=== PATIENT | male | born 2000 | race Caucasian/White ===

== ENCOUNTER 2020-07-15 09:41 | Emergency (ER) | payer OTHER, BC, SELFPAY ==
[2020-07-15 09:49] VITALS: BP 154/76; PULSE 96; RESP 16; TEMP 38.1; O2SAT 100
--- NOTE | 2020-07-15 10:26 | ED.URI ---
HPI - URI/Sore Throat General Chief Complaint: Upper Respiratory Infection Stated Complaint: back ache cold chills cough Time Seen by Provider: 07/15/20 10:27 Source: patient Mode of arrival: ambulatory Limitations: no limitations History of Present Illness HPI Narrative: Rosas Crowley is a 19 yo male with a fever, dry cough, backaches and general body aches x2 days. Fever was as high as 101.6 this morning at triage today was 100.6. Has not been taking Tylenol or ibuprofen Related Data Home Medications Medication Instructions Recorded Confirmed No Home Medications 07/15/20 07/15/20 Allergies Allergy/AdvReac Type Severity Reaction Status Date / Time No Known Allergies Allergy Verified 07/15/20 10:03 Review of Systems Review of Systems: Narrative: CONSTITUTIONAL: Has fever, chills, sweats. EYES: Denies visual changes, redness, discharge. ENT: Denies rhinorrhea, congestion, sore throat, otalgia. CARDIOVASCULAR: Denies chest pain, palpitations, edema. RESPIRATORY: Denies dyspnea, wheezing, has cough GASTROINTESTINAL: Denies abdominal pain, nausea, vomiting, diarrhea. GENITOURINARY: Denies dysuria, hematuria, abnormal discharge SKIN: Denies rash or itching. NEUROLOGIC: Denies numbness, or focal weakness. PSYCHIATRIC: Denies anxiety or depression. Has lower back pain and myalgia PMFSH Past Medical History Medical History ADHD Bronchitis Family History Family History Other No active medical problems Social History Social History (Updated 07/15/20 @ 10:38 by Diana Graff CNP) Smokeless tobacco user: chewing tobacco Smoking end date: 11/25/16 Comments At time of signature, I agree with nursing past medical, surgical, social and family history. There is no relevant family history pertinent to the presenting complaint. Patient is ill today and blood pressure is elevated. Should follow-up with a primary care physician when feeling better Exam Narrative: Exam Narrative: GENERAL: This is a well-nourished, well-developed patient, in moderate distress. HEAD: normocephalic, atraumatic. EYES: Sclera clear/white. Vision is grossly intact. EARS: External ears normal, auditory canals clear and without drainage, TMs normal without perforation. Hearing grossly intact. NOSE: External nose normal without nasal discharge, nares without redness, no rhinorrhea. THROAT: Mucous membranes moist, posterior pharynx erythema with no exudate NECK: Neck supple, mild tender CARDIOVASCULAR: Mild tachycardia rate and rhythm without murmurs, gallops, or rubs. RESPIRATORY: Diminished to auscultation. Dry cough. breath sounds equal bilaterally. No wheezes, rales, or rhonchi. GASTROINTESTINAL: Abdomen soft, non-tender, SKIN: warm, intact with no suspicious lesions or rash, good texture and turgor. NEURO: awake, alert, and oriented to person, place and time. There were no obvious focal neurologic abnormalities. Steady gait EXTREMITIES: Normal range of motion. BACK: Nontender without deformity Course Course Emergency Course: Given directions to rotate Tylenol and ibuprofen every 4 hours and hydrate well; monitor fever Testing prescription sent-and work excuse for today and given directions to quarantine until cover test results are obtained Vital Signs Vital signs: Vital Signs Temperature 100.6 F H 07/15/20 09:49 Pulse Rate 96 07/15/20 09:49 Respiratory Rate 16 07/15/20 09:49 Blood Pressure 154/76 H 07/15/20 09:49 Pulse Oximetry 100 07/15/20 09:49 Temperature 100.6 F H 07/15/20 09:49 Pulse Rate 96 07/15/20 09:49 Respiratory Rate 16 07/15/20 09:49 Blood Pressure 154/76 H 07/15/20 09:49 Pulse Oximetry 100 07/15/20 09:49 MDM - URI/Sore Throat Differential Diagnosis Differential diagnosis: Likely upper respiratory infection, viral infection, influenza, pharyngitis and other D
== END 2020-07-15 10:45 | disposition home or self-care (01) ==
PROVIDERS: Emergency Provider Nurse Practitioner
DX: J06.9 Acute upper respiratory infection, unspecified (principal); F17.290 Nicotine dependence, other tobacco product, uncomplicated
CPT/HCPCS: 99211; G0463

== ENCOUNTER 2023-05-14 14:24 | Emergency (ER) | payer BC, SELFPAY ==
[2023-05-14 14:33] VITALS: BP 143/85; PULSE 94; RESP 16; TEMP 36.7; O2SAT 100
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
== END 2023-05-14 14:42 | disposition home or self-care (01) ==
PROVIDERS: Emergency Provider Nurse Practitioner Family
DX: L25.9 Unspecified contact dermatitis, unspecified cause (principal); F17.220 Nicotine dependence, chewing tobacco, uncomplicated
CPT/HCPCS: 99213; G0463

== ENCOUNTER 2023-10-25 15:25 | Emergency (ER) | payer BC, SELFPAY ==
[2023-10-25 15:37] VITALS: BP 150/84; PULSE 122; RESP 16; TEMP 36.6; O2SAT 100
[2023-10-25 15:49] VITALS: BP 150/84; PULSE 122; RESP 16; TEMP 36.6; O2SAT 100
--- NOTE | 2023-10-25 16:05 | ED.URI ---
HPI - URI/Sore Throat General Chief Complaint: Upper Respiratory Infection Stated Complaint: Sore Throat/Rash Time Seen by Provider: 10/25/23 15:50 Source: patient Mode of arrival: ambulatory Limitations: no limitations History of Present Illness HPI Narrative: Rosas is a 23-year-old male patient presenting to the clinic today with complaints of a sore throat a rash x3 days. He reports he went all [facility] and they tested him for strep and told him it was negative at that time. States that the sore throat is getting worse. He denies any known fever but does have a strep like rash. MD elicited complaint: sore throat and other (Rash) Related Data Allergies Allergy/AdvReac Type Severity Reaction Status Date / Time No Known Allergies Allergy Verified 10/25/23 15:49 Review of Systems Review of Systems: Pertinent positives per HPI. Patient denies any fever, chills, headache, visual changes, dizziness, cough, shortness of breath, chest pain, palpitations, nausea, vomiting, diarrhea, constipation, abdominal pain, or any urinary issues. PMFSH Past Medical History Medical History ADHD Bronchitis Family History Family History Other No active medical problems Social History Social History Smokeless tobacco user: chewing tobacco Smoking end date: 11/25/16 Comments At the time of my signature, I reviewed and agree with the nursing past medical, surgical, social, and family history. There is no relevant family history pertinent to the patient complaint. Exam Narrative: General: Well-developed, well nourished, in no apparent distress Head: Normocephalic, atraumatic Eyes: Pupils equally round and reactive to light bilaterally, EOM intact, sclera and conjunctive clear, no discharge, lids normal Ears: TMs intact and clear, ear canals clear, no drainage, grossly hearing normal. Nose: Nares patent, no discharge, no inflammation, no sinus tenderness. Mouth: Oral pharynx red with bilateral tonsillar enlargement with exudate, without lesions or masses, good dentition, MMM. Neck: Supple, trachea midline, enlargement of anterior cervical nodes, no thyroid masses or goiter palpable. Cardio: Regular rate and rhythm, s1 and s2 normal, no murmur appreciated. Resp: Clear to auscultation bilaterally, no rhonchi, rales, wheezing or rubs Course Course Emergency Course: Portions of this record may have been created with voice recognition software. Level of Care: Express Care Visit Vital Signs Vital signs: Vital Signs Temperature 36.6 C 10/25/23 15:37 Pulse Rate 122 H 10/25/23 15:37 Respiratory Rate 16 10/25/23 15:37 Blood Pressure 150/84 H 10/25/23 15:37 Pulse Oximetry 100 10/25/23 15:37 Oxygen Delivery Room Air 10/25/23 15:37 Temperature 36.6 C 10/25/23 15:49 Pulse Rate 122 H 10/25/23 15:49 Respiratory Rate 16 10/25/23 15:49 Blood Pressure 150/84 H 10/25/23 15:49 Pulse Oximetry 100 10/25/23 15:49 Oxygen Delivery Room Air 10/25/23 15:49 Vital signs reviewed MDM - URI/Sore Throat MDM Narrative Medical decision making narrative: At the time of visit patient is resting comfortably on exam table. I suspect patient has exudative pharyngitis. Strep test and mono test were both negative in the clinic today due to his symptoms I will go and empirically treat him with amoxicillin. Supportive measures were discussed with the patient he voiced understanding discharge instructions and agrees to treatment plan. Differential Diagnosis Differential diagnosis: Likely upper respiratory infection, otitis media, sinusitis, viral infection, bronchitis, influenza, pharyngitis and other (COVID) Lab Data Labs: Strep Screen Presumptive Negative *(Refere
== END 2023-10-25 16:14 | disposition home or self-care (01) ==
PROVIDERS: Emergency Provider Nurse Practitioner Family
DX: J02.9 Acute pharyngitis, unspecified (principal); Z87.891 Personal history of nicotine dependence
CPT/HCPCS: 36416; 86308; 87081; 87880; 99213; G0463

== ENCOUNTER 2025-02-11 08:08 | Emergency (ER) | payer BC, SELFPAY ==
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
--- OUTSIDE RECORDS SUMMARY | 2025-02-11 08:11 | XMS_ITS | Referral Summary ---
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 Gender Identity Not on file Sexual Orientation Not on file Last Filed Vital Signs Vital Sign Reading Time Taken Comments Blood Pressure 148/86 10/23/2023 2:40 AM HEAD WRESTLING COACH Pulse 85 10/23/2023 2:40 AM HEAD WRESTLING COACH Temperature 36.6 C (97.8 F) 10/22/2023 9:51 PM HEAD WRESTLING COACH Respiratory Rate 18 10/23/2023 2:40 AM HEAD WRESTLING COACH Oxygen Saturation 100% 10/23/2023 2:40 AM HEAD WRESTLING COACH Inhaled Oxygen Concentration - - Weight 93 kg (205 lb) 10/22/2023 9:51 PM HEAD WRESTLING COACH Height 185.4 cm (6' 1 ) 06/12/2022 5:32 PM CDT Body Mass Index 27.05 06/12/2022 5:32 PM CDT Plan of Treatment Not on file Procedures Procedure Name Priority Date/Time Associated Diagnosis [...] last revised on 2020. Testing performed by: [facility], [address] [place] [address]., [id number] Blood 06/12/2022 8:11 PM CDT 06/13/2022 9:17 AM CDT [facility] - GENERAL O RDERABLES Edited Result - Final NADYA LOPEZ ([place]) 1 [facility] Department [place] [address] from Last 3 Months or Most Recently Relevant to Health [place] [address] [facility] Care Teams Fac Engineer Relationship Specialty Start Date End Date No, Physician PCP - General 02/16/21
--- OUTSIDE RECORDS SUMMARY | 2025-02-11 08:11 | XMS_ITS | Clinical Summary ---
Author Organization [facility] Address [address] [place] [address] Care Team Providers Care Trade Clerk Name Role Phone Tripp Abraham MD Primary Care Provider [phone] Source Comments [facility],non-owned Affiliates and Associated Physician Practices is amultiple site organization consisting of ambulatory clinics and hospital sitesin [place], [place], [place] and [place]. This disclosure is being madepursuant to the Care Everywhere program and may not contain all information available regarding this patient. Last updated 18.[facility] Allergies No known active allergies Medications * Be aware that medications may not be up to date on this document. Alwaysverify current medications with the patient. Medication Sig Dispensed Refills Start Date End Date Status omeprazole EC (PRILOSEC OTC) 20 MG tabletIndications:Gen eralized abdominal pain Take 1 Tab by mouth daily before breakfast 42 Tab 1 03/08/2017 Active Active Problems Problem Noted Date Diagnosed Date Abdominal pain 03/01/2017 Social History Tobacco Use Types Packs/Day Years Used Date Smoking Tobacco: Never Assessed Sex and Gender Information Value Date Recorded Sex Assigned at Not on file Gender Identity Not on file Sexual Orientation Not on file Last Filed Vital Signs Vital Sign Reading Time Taken Comments Blood Pressure 118/64 03/08/2017 1:25 PM CDT Pulse - - Temperature - - Respiratory Rate - - Oxygen Saturation - - Inhaled Oxygen Concentration - - Weight 68.4 kg (150 lb 12.7 oz) 03/08/2017 1:25 PM CDT Height 179.4 cm (5' 10.63 ) 03/08/2017 1:25 PM C DT Body Mass Index 21.25 03/08/2017 1:25 PM CDT Plan of Treatment Health Maintenance Due Date Last Done Comments HIV SCREENING 2014 HPV VACCINE (1 - Male 3-dose series) 2014 HEPATITIS C SCREENING 09/06/2017 DTAP/TDAP/TD VACCINES (1 - Tdap) 2018 HEPATITIS B VACCINE (1 of 3 - 19+ 3-dose series) 2018 COVID-19 VACCINE (1 - 2023-2 5 season) 2024 INFLUENZA VACCINE (#1) 2024 DEPRESSION SCREENING 11/25/2024 ZOSTER VACCINE (1 of 2) 2049 HIB VACCINE Aged Out No longer eligi ble based on patient's age to complete this topic MENINGOCOCCAL (Group B) VACC INE SHARED DECISION-MAKING Aged Out No longer eligibl e based on patient's age to complete this topic MENINGOCOCCAL GROUPS A/C/Y/W VACCINE Aged Out No longer eligible b ased on patient's age to complete this topic PNEUMOCOCCAL VACCINE Aged Out No long er eligible based on patient's age to complete this topic Care Teams Trade Clerk Relationship Specialty Start Date End Date Tripp Abraham MD [address] [place], [place] [id number] PCP - General Pediatrics 02/11/17
--- OUTSIDE RECORDS SUMMARY | 2025-02-11 08:11 | XMS_ITS | Clinical Summary ---
Author Organization [facility] Address [address] [place] [address] Phone Care Team Providers Care Flavorings Compounder Name Role Phone Tripp Abraham MD Primary Care Provider Social History Tobacco Use Types Packs/Day Years Used Date Smoking Tobacco: Never Assessed Sex and Gender Information Value Date Recorded Sex Assigned at Not on file Legal Sex Male 9:47 AM CDT Gender Identity Not on file Sexual Orientation Not on file Plan of Treatment Health Maintenance Due Date Last Done Comments Hepatitis C Virus (HCV) Screening 1999 TdaP Immunization 1999 Human Papillomavirus (HPV) Immunization (1 - Male 3-dose series) 2014 Hepatitis B Immunization (1 of 3 - 19+ 3-dose series) 2018 Influenza Immunization (#1) 2024 SARS-COV-2 Immunization ( - 2023- season) 2024 Respiratory Syncytial Virus (RSV) Immunization (Adult) (1 - 1-dose 75+ series) 2074 Meningococcal Immunization (ACWY) Aged Out No longer eligible based on patient's age to complete this topic Pneumococcal Immunization Combined Aged Out No longer eligible based on patient's age to complete this topic Rotavirus Immunization Aged Out No lo nger eligible based on patient's age to complete this topic Insurance MEDICAID [employer] Care Teams Flavorings Compounder Relationship Specialty Start Date End Date Tripp Abraham MD [address] [place] [address] [place] [id number] PCP - General Pediatrics 02/05/17
--- NOTE | 2025-02-11 08:13 | ED.GENADULT ---
HPI - General Adult General Chief complaint: Upper Respiratory Infection Stated complaint: sore throat/ lower back pain Time Seen by Provider: 02/11/25 08:22 Source: patient, RN notes reviewed and old records reviewed Mode of arrival: ambulatory Limitations: no limitations History of Present Illness HPI narrative: 24-year-old male to the [facility] with complaints of a sore throat, low back pain, body aches that started yesterday. Patient has not taking anything his symptoms. Denies fevers. Denies any other symptoms Onset (ago): day(s) (1) Treatments prior to arrival: none Related Data Allergies Allergy/AdvReac Type Severity Reaction Status Date / Time No Known Allergies Allergy Verified 02/11/25 08:22 Review of Systems Review of Systems: All systems reviewed & are unremarkable except as noted in HPI and below Constitutional: Constitutional: Reports as per HPI, Reports body ache(s) and Reports fatigue ENT: Reports as per HPI and Reports sore throat Cardiovascular: Cardiovascular: Reports no additional cardiovascular complaints, Denies chest pain and Denies dyspnea Respiratory: Respiratory: Reports no additional respiratory complaints, Denies chest congestion, Denies cough and Denies dyspnea Musculoskeletal: Musculoskeletal: Reports no additional musculoskeletal complaints Integumentary/Breasts: Skin/Breast: Reports system reviewed and no additional complaints, except as docu PMFSH Past Medical History Medical History (Updated 02/11/25 @ 08:38 by Suki Zuniga APRN) Bronchitis ADHD Family History Family History Other No active medical problems Social History Social History Smokeless tobacco user: chewing tobacco Smoking end date: 11/25/16 Comments At the time of my signature, I reviewed and agree with the nursing past medical, surgical, social, and family history. There is no relevant family history pertinent to the patient complaint. Exam Const: General: cooperative, no acute distress, well developed, alert, tired appearing, uncomfortable and well nourished Nutritional Appearance: well nourished Orientation/consciousness: patient oriented x3 Limitations: no limitations HENMT: Head: normal to inspection Ears: hearing grossly normal bilaterally, external ears normal, TM's normal bilaterally, EAC's normal, mastoids normal and no periauricular adenopathy Face/Nose/Sinus: Normal external nose present, Normal nasal mucous membranes and turbinates present and No nasal discharge present Face and sinus: normal facial exam and face symmetric Mouth: Yes Normal oral and palatal mucosa present, Yes lip normal, Yes tongue normal and Yes moist mucous membranes Throat: uvula midline, abnormal tonsil bilateral erythema, exudates and hypertrophy 2+ and no uvular edema Eyes: General: appearance normal, both eyes and all related structures Alignment and Position: alignment normal Neck: Neck: normal visual inspection, full ROM, no lymphadenopathy and no meningeal signs Chest: Chest palpation & inspection: normal inspection of the chest Resp: Effort & Inspection: normal respiratory effort and able to speak in complete sentences Auscultation: clear to auscultation bilaterally, no crackles, no rales, no rhonchi and no wheezes Cardio: Rate: regular rate Skin: General skin exam: normal color and no rashes or lesions noted Neuro: General: patient oriented x3, gait normal, moves all extremities and no meningeal signs Cognition (Neuro): normal cognition Speech: normal speech Gait exam (Neuro): Normal gait present Extrem: General: normal to inspection, full ROM, capillary refill normal and normal gait Psych: Appearance: grossly normal and well kempt Mental Status: mental status grossly normal Speech and movement: Normal speech and movement present and Clear speech present Affect: normal affect Attitude: cooperative Course Course Level of Care: Express Care Visit Vital Signs Vital signs: Vital Signs Temperature 98.3 F 02/11/25 08:15 Pulse Rate 90 02/11/25 08:15 Respiratory Rate 16 02/11/25 08:15 Blood Pressure 126/69 02/11/25 08:15 Pulse Oximetry 100 02/11/25 08:15 Oxygen Delivery Room Air 02/11/25 08:15 Temperature 98.3 F 02/11/25 08:15 Pulse Rate 90 02/11/25 08:15 Respiratory Rate 16 02/11/25 08:15 Blood Pressure 126/69 02/11/25 08:15 Pulse Oximetry 100 02/11/25 08:15 Oxygen Delivery Room Air 02/11/25 08:15 Reviewed Medical Decision Making MDM Narrative Medical decision making narrative: Patient sitting comfortably in exam room. Nontoxic, vitals stable. Patient in no acute distress Patient presents for 1 day history of body aches, sore throat Significant erythema, exudate and swelling noted to bilateral tonsils. Strep flu and COVID are negative. Will treat tonsillitis with exudate Patient appropriate for outpatient treatment and follow-up Discharge instructions reviewed with patient, as well as provided in writing per nursing staff. The instructions also include specific and strict return/GO TO THE ER as well as f/u information. All questions have been answered, and the patient deny any further questions with discharge and discharge plan. Some parts of this dictation were generated by voice recognition software and may contain typographical and/or grammatical inaccuracies. Differential Diagnosis Differential Diagnosis: Flu, COVID, strep, URI postnasal drainage Medical Records Medical records reviewed: Yes I reviewed the external patient's medical records. Vital Signs Vital Signs: Vital Signs Temperature 98.3 F 02/11/25 08:15 Pulse Rate 90 02/11/25 08:15 Respiratory Rate 16 02/11/25 08:15 Blood Pressure 126/69 02/11/25 08:15 Pulse Oximetry 100 02/11/25 08:15 Oxygen Delivery Room Air 02/11/25 08:15 Temperature 98.3 F 02/11/25 08:15 Pulse Rate 90 02/11/25 08:15 Respiratory Rate 16 02/11/25 08:15 Blood Pressure 126/69 02/11/25 08:15 Pulse Oximetry 100 02/11/25 08:15 Oxygen Delivery Room Air 02/11/25 08:15 Reviewed Lab Data Lab results reviewed: Yes I reviewed the patient's lab results. Labs: Lab Results 02/11/25 Range/Units 08:18 POC Influenza A Ag Negative (Negative) POC Influenza B Ag Negative (Negative) POC SARS CoV-2 Ag Negative (Negative) Reviewed Critical Care Time Critical Care Time Critical Care Time: No Discharge Plan Discharge Clinical Impression: Tonsillitis with exudate Patient Disposition: Home, Self-Care Condition: Stable Instructions: Antibiotic Form, Tonsillitis (ED) Additional Instructions: Your rapid strep swab was negative today at [facility]. A throat culture will be sent to the laboratory for further testing. If the test is positive, you will receive a phone call within 48 hours and an appropriate antibiotic will be initiated at that time. Your rapid COVID test were negative Your rapid flu test was negative It is very important to treat your symptoms. Drink plenty of water, Gatorade, Pedialyte, ice pops or Jell-O. -Alternate Tylenol and Motrin per package directions for fever or pain. You can alternate every 4 hours -Antihistamine medication such as Zyrtec/Claritin/Jessica during the day can help improve symptoms. -You can also use Mucinex. Be sure to drink plenty of water with this medication at least 8 ounces with every dose and it is important to drink 8 to 10 glasses of water per day. Water is a natural decongestant -Eat and drink things that are easy to swallow, like tea or soup, or popsicles. -Oral rinses such as: Salt water gargles and/or may use topical anesthetic (eg. Chloraseptic spray) or lozenges to relieve dryness or throat pain). -Frequent hand washing or hand national sales director is one of the best ways to prevent spread of infection. -Using a vaporizer or humidifier at night will also help thin secretions and help with coughing up phlegm. -Follow up with primary care provider in 7-10 days if condition is not improving - For new or worsening symptoms go directly to the nearest ER Patient Language: Czech Prescriptions: New amoxicillin 875 mg tablet 875 mg PO Q12H Qty: 20 0RF No Action amoxicillin 875 mg tablet 875 mg PO Q12H 10 Days Qty: 20 0RF Follow-up/Referrals: UNKNOWN,DOCTOR [Primary Care Provider] - Stand Alone Forms: Work/School Release IP Time of Disposition: 08:39
[2025-02-11 08:15] VITALS: BP 126/69; PULSE 90; RESP 16; TEMP 36.8; O2SAT 100
[2025-02-11 08:41] LABS: EDCOVIDSCREEN Negative (Negative); EDINFLUASCREEN Negative (Negative); EDINFLUBSCREEN Negative (Negative)
[2025-02-11 09:34] LABS: EDSTREPNEGPOS1 Negative (Negative)
== END 2025-02-11 08:44 | disposition home or self-care (01) ==
PROVIDERS: Emergency Provider Nurse Practitioner
DX: J03.90 Acute tonsillitis, unspecified (principal); Z20.822 Contact with and (suspected) exposure to COVID-19; Z87.891 Personal history of nicotine dependence
CPT/HCPCS: 87081; 87426; 87804; 87880; 99213; G0463

== ENCOUNTER 2025-03-18 11:44 | Emergency (ER) | payer OTHER, BC, SELFPAY ==
--- NOTE | ~2025-03-18 | XR_ITS ---
XR chest 2V Ordering provider: Etta Gao NP History: 24 years Male with . month of respiratory infection symptoms . Comparison: None. FINDINGS: MEDIASTINUM: The cardiac silhouette is not enlarged. LUNGS: No infiltrates, effusions or pneumothorax. OTHER: No free air under the diaphragm. IMPRESSION: No acute cardiopulmonary pathology. Reviewed, dictated and finalized at location A.
[2025-03-18 11:50] VITALS: BP 127/68; PULSE 92; RESP 28; TEMP 36.5; O2SAT 100
--- NOTE | 2025-03-18 12:08 | ECG_ITS ---
Test Date: 2025-03-18 12:01:15 Measurements Intervals [place] Rate: 63 P: 61 TX: 133 QRS: 73 QRSD: 103 T: 43 QT: 385 QTc: 396 Interpretive Statements SINUS RHYTHM WITH SINUS ARRHYTHMIA INCOMPLETE RIGHT BUNDLE BRANCH BLOCK PEAKED T WAVES- CONSIDER HYPERKALEMIA ABNORMAL ECG No previous ECG available for comparison Electronically Signed On 03-18-2025 13:02:46 CDT by Blane Vicente D.O.
--- NOTE | 2025-03-18 12:08 | ED.CHESTPAIN ---
HPI - Chest Pain General Chief Complaint: Chest Pain Stated Complaint: chest pain/numbness of left side/shortnessofbreath Time Seen by Provider: 03/18/25 12:00 Source: patient, RN notes reviewed and old records reviewed Mode of arrival: ambulatory Limitations: no limitations History of Present Illness HPI narrative: 24 year old male presents to [facility] care with complaints of having one month duration of URI with cough, nasal drainage and some sinus pressure with cough starting to resolve. Patient reports that last night around 10pm he had left sided chest pain but was then able to go to sleep and slept all night with no pain when he awoke this morning. Patient reports that around 0900 this morning while at work he started having similar pain to his left chest and felt short of breath. Patient noted in triage to be sweaty and hyperventilating states some numbness to his hands and left chest. Patient reports that he took aspirin before he came to clinic. Patient reports no feelings of nausea or any pain to back arms or jaw.Patient reports that he has a lot of stress in his life states 2 baby mommas and 4 kids. MD complaint: chest pain Pertinent past history: other (vaping) Onset (ago): day(s) Timing of current episode: other (this morning at 0900) Prior episodes: Yes Onset: during exertion Pain location: left chest Pain scale (0-10): 7 Treatment prior to arrival: aspirin Risk Factors Coronary artery disease risk factors: smoking history Related Data Allergies Allergy/AdvReac Type Severity Reaction Status Date / Time bee venom protein (honey Allergy SOB Verified 03/18/25 12:50 bee) (bees) Review of Systems Review of Systems: CONSTITUTIONAL: Denies fever, chills, or sweats. EYES: Denies visual changes, redness, or discharge. ENT: Reports some rhinorrhea, congestion,no sore throat, or otalgia. CARDIOVASCULAR: Reports left sided chest pain,no palpitations, or edema. RESPIRATORY: Reports cough or dyspnea. GASTROINTESTINAL: Denies abdominal pain, nausea, vomiting, or diarrhea. GENITOURINARY: Denies dysuria or hematuria. SKIN: Denies rash or itching. MUSCULOSKELETAL: Denies back pain, joint pain, or myalgia. NEUROLOGIC: Denies headache, numbness to hands and left chest on arrival, no weakness. PSYCHIATRIC: Reports anxiety or depression. All systems reviewed & are unremarkable except as noted in HPI and below PMFSH Past Medical History Medical History (Updated 03/19/25 @ 17:34 by Etta Gao NP) Ulcer Fracture, ankle Bronchitis ADHD Family History Family History Other No active medical problems Social History Social History (Updated 03/19/25 @ 17:32 by Etta Gao NP) Smoking status: Current every day smoker Tobacco type: e-cigarettes/vaping Smokeless tobacco user: chewing tobacco Smoking end date: 11/25/16 Additional smoking assessment comments: currently vapes former chewing tobacco Alcohol intake: unknown Substance use: current Substance use type: marijuana Additional living arrangements comments: with Gender identity (if verbalized by the patient): Male Comments At time of signature, agree with nursing past medical, surgical, social and family history. There is no relevant family history pertinent to the presenting complaint Exam Narrative: GENERAL: Well-appearing, well-nourished, and in some acute distress on arrival anxious HEAD: Normocephalic, atraumatic. EYES: PERRLA and EOMI. ENT: Nares clear,clear rhinorrhea no epistaxis. Mucous membranes moist.TM's normal throat pink with no swelling NECK: Supple. no lymphadenopathy CHEST: Clear to auscultation. No respiratory distress.initially hyperventilating on arrival with respirations decreased in rate to 20 with no dyspnea voiced. occasional dry cough noted SAO2 100% HEART: Regular rate and rhythm. No murmur heard. Normal peripheral pulses. echo technologist showing sinus arrhythmia rate 60-90's no ectopy noted ABDOMEN: Soft, nontender, nondistended, normal active bowel sounds. EXTREMITIES: Normal range of motion. No edema. SKIN: Warm, dry, no rash. NEURO: No focal deficits. Alert and oriented x3. anxious initially but calmed prior to discharge Course Course Emergency Course: Patient is aware of diagnosis, understands and agrees to treatment plan.? Anticipatory guidance given.? Patient agrees to follow-up as directed and is aware of reasons to seek care at the emergency department. Patient instructed if any return of acute chest pain to go directly to the emergency room with understanding voiced. Portions of this record may have been created with voice recognition software Level of Care: Express Care Visit Vital Signs Vital signs: Vital Signs Temperature 36.5 C 03/18/25 11:50 Pulse Rate 92 03/18/25 11:50 Respiratory Rate 28 H 03/18/25 11:50 Blood Pressure 127/68 03/18/25 11:50 Pulse Oximetry 100 03/18/25 11:50 Oxygen Delivery Room Air 03/18/25 11:50 Temperature 36.5 C 03/18/25 11:50 Pulse Rate 64 03/18/25 13:08 Respiratory Rate 20 03/18/25 13:08 Blood Pressure 111/58 L 03/18/25 13:08 Pulse Oximetry 98 03/18/25 13:08 Oxygen Delivery Room Air 03/18/25 13:08 Reviewed MDM - Chest Pain Differential Diagnosis Differential diagnosis: Likely atypical chest pain, costochondritis, chest pain and other (uri, anxiety) Medical Records Data Attestation: I reviewed the patient's medical records. Imaging Data Attestation: I personally reviewed and interpreted this imaging study as follows: My impression: no acute cardiopulmonary pathology Radiologist's impression: [place] [id number] XRay Report Signed Patient: Rosas Crowley : 2000 MR#: [id number] Age: 24 Acct:[id number] Loc: [facility] ADM Date: 03/18/25Attending Dr: Ordering Physician: Etta Gao APRN Date of Service: 03/18/25 Procedure(s): XR chest 2V Accession Number(s): [id number] cc: GROUND DEFENCE OFFICER PHYSICIAN; Etta Gao APRN~ XR chest 2V Ordering provider: Etta Gao NP History: 24 years Male with . month of respiratory infection symptoms . Comparison: None. FINDINGS: MEDIASTINUM: The cardiac silhouette is not enlarged. LUNGS: No infiltrates, effusions or pneumothorax. OTHER: No free air under the diaphragm. IMPRESSION: No acute cardiopulmonary pathology. Reviewed, dictated and finalized at location A. Please be advised this is a medical document. It is intended for ract-uc-efnp communication. It is written in medical language and may contain unfamiliar abbreviations or verbiage. Medical documents are intended to carry relevant information, facts as evident, and the clinical opinion of the practitioner at the time of the encounter. This report may have been done utilizing a voice recognition system. Attempts have been made to correct errors. However, there may be uncorrected grammatical, spelling, and recognition errors present. The file time of this note does not necessarily represent the time of service. Dictated By: Alec Bhakta MD 03/18/25 1235 Signed By: <Electronically signed by Alec Bhakta MD in OV> ECG Data EKG #1: Attestation: I personally reviewed and interpreted this ECG as follows: ECG completion date: 03/18/25 ECG completion time: 12:01 Prior ECG tracings: not available for review Ischemic changes: other (V1 flipped T ) Interpretation: rate 63bpm, DC 133ms QRS 103ms QT 385ms sinus rhythm with sinus arrhythmia EKG Interpretation: normal rate, sinus rhythm (sinus arrhythma), RBBB (incomplete) and other (peaked t V4) Discharge Plan Discharge Clinical Impression: Atypical chest pain Patient Disposition: Home Condition: Stable Instructions: Antibiotic Form, Chest Wall Pain (ED) Additional Instructions: Increase fluids especially juices and water Zyrtec Claritin or Jessica daily heat to the face 20-30 minutes 4-6 times a day for pain Salt water gargles, throat lozenges or throat sprays as desired Prednisone 20 mg twice daily for 5 days If your symptoms persist, change or worsen significantly before you can contact your personal physician then please, without delay, go to the emergency department for further evaluation. Follow-up with PCP in 7-10 days or sooner if needed Follow up with PCP soon in regards to your blood pressure which is elevated above threshold for referral. Blood pressure above 120/80 may indicate pre-hypertension. Minimal systolic elevation 127/68 If any episodes of chest pain or any shortness of breath go directly to the emergency room Patient Language: Romanian Prescriptions: New prednisone 20 mg tablet 20 mg PO BID 5 Days Qty: 10 0RF Follow-up/Referrals: PHYSICIAN,GROUND DEFENCE OFFICER [Primary Care Provider] - Time of Disposition: 13:01 Quality [place] Coma Scale Eyes: Open Verbal: Oriented and Alert Motor: Follows Commands [place] Coma Total Score: 15
[2025-03-18 13:08] VITALS: BP 111/58; PULSE 64; RESP 20; O2SAT 98
--- OUTSIDE RECORDS SUMMARY | 2025-03-18 13:10 | XMS_ITS | Referral Summary ---
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 CLERK Gender Identity Not on file Sexual Orientation Not on file Last Filed Vital Signs Vital Sign Reading Time Taken Comments Blood Pressure 148/86 10/23/2023 2:40 AM BRAILLE AND TALKING BOOKS CLERK Pulse 85 10/23/2023 2:40 AM BRAILLE AND TALKING BOOKS CLERK Temperature 36.6 C (97.8 F) 10/22/2023 9:51 PM BRAILLE AND TALKING BOOKS CLERK Respiratory Rate 18 10/23/2023 2:40 AM BRAILLE AND TALKING BOOKS CLERK Oxygen Saturation 100% 10/23/2023 2:40 AM BRAILLE AND TALKING BOOKS CLERK Inhaled Oxygen Concentration - - Weight 93 kg (205 lb) 10/22/2023 9:51 PM BRAILLE AND TALKING BOOKS CLERK Height 185.4 cm (6' 1 ) 06/12/2022 [...] last revised on 2020. Testing performed by: [facility], [address] [place] [address]., [id number] Blood 06/12/2022 8:11 PM CDT 06/13/2022 9:17 AM CDT Ivan [facility] MICROBIOLOGY - GENERAL O RDERABLES Edited Result - Final NADYA LOPEZ ([place]) 1 [facility] Department [place] [address] from Last 3 Months or Most Recently Relevant to [place] [address] [facility] Care Teams Pediatric Psychiatrist Relationship Specialty Start Date End Date No, Physician PCP - General 02/16/21
--- OUTSIDE RECORDS SUMMARY | 2025-03-18 13:10 | XMS_ITS | Clinical Summary ---
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 Gender Identity Not on file Sexual Orientation Not on file Obstetrics History Last Filed Vital Signs Vital Sign Reading Time Taken Comments Blood Pressure 148/86 10/23/2023 2:40 AM CONSTRUCTION EQUIPMENT TECHNICIAN Pulse 85 10/23/2023 2:40 AM CONSTRUCTION EQUIPMENT TECHNICIAN Temperature 36.6 C (97.8 F) 10/22/2023 9:51 PM CONSTRUCTION EQUIPMENT TECHNICIAN Respiratory Rate 18 10/23/2023 2:40 AM CONSTRUCTION EQUIPMENT TECHNICIAN Oxygen Saturation 100% 10/23/2023 2:40 AM CONSTRUCTION EQUIPMENT TECHNICIAN Inhaled Oxygen Concentration - - Weight 93 kg (205 lb) 10/22/2023 9:51 PM CONSTRUCTION EQUIPMENT TECHNICIAN Height 185.4 cm (6' 1 ) 06/12/2022 [...] last revised on 2020. Testing performed by: [facility], [address] [place] [address]., [id number] Blood 06/12/2022 8:11 PM CDT 06/13/2022 9:17 AM CDT Ivan [facility] MICRO[facility] - GENERAL O RDERABLES Edited Result - Final NADYA LOPEZ ([place]) 1 [facility] Department [place] [address] from Last 3 Months or Most Recently Relevant to Health Maintenance Insurance [address] [facility] [place] [address] [facility] [address] Care Teams Cable Way Operator Relationship Specialty Start Date End Date No, Physician PCP - General 02/16/21
--- OUTSIDE RECORDS SUMMARY | 2025-03-18 13:10 | XMS_ITS | Clinical Summary ---
Author Organization [facility] Address [address] [place] [address] Care Team Providers Care Precinct Captain Name Role Phone Tripp Abraham MD Primary Care Provider [phone] Source Comments [facility],non-owned Affiliates and Associated Physician Practices is amultiple site organization consisting of ambulatory clinics and hospital sitesin [place], [place], [place] and [place]. This disclosure is being madepursuant to the Care Everywhere program and may not contain all information available regarding this patient. Last updated 18.[facility] Allergies No known active allergies Medications * Be aware that medications may not be up to date on this document. Alwaysverify current medications with the patient. omeprazole EC (PRILOSEC OTC) 20 MG tabletIndicatio ns:Generalized abdominal pain Take 1 Tab by mouth daily before breakfast 42 Tab 1 7 Active Active Problems Problem Noted Date Diagnosed Date Abdominal pain 03/01/2017 Social History Tobacco Use Types Packs/Day Years Used Date Smoking Tobacco: Never Assessed Sex and Gender Information Value Date Recorded Sex Assigned at Not on file Legal Sex Male 10:17 AM CDT Gender Identity Not on file [...] VACCINE (1 - 2023-2 5 season) 2024 DEPRESSION SCREENING 11/25/2024 INFLUENZA VACCINE (Season Ended) 2025 ZOSTER VACCINE (1 of 2) 2049 HIB [...] patient's age to complete this topic Insurance [facility] Care Teams Precinct Captain Relationship Specialty Start Date End Date Tripp Abraham MD [address] [place], [place] [id number] PCP - General Pediatrics 02/11/17
== END 2025-03-18 13:08 | disposition home or self-care (01) ==
PROVIDERS: Emergency Provider Registered Nurse
DX: R07.89 Other chest pain (principal); F17.290 Nicotine dependence, other tobacco product, uncomplicated
CPT/HCPCS: 71046; 93005; 99213; G0463

== ENCOUNTER 2025-08-12 10:03 | Emergency (ER) | payer BC, SELFPAY ==
[2025-08-12 10:13] VITALS: BP 137/76; PULSE 71; RESP 18; TEMP 36.8; O2SAT 100
--- NOTE | 2025-08-12 10:22 | ED.NAVMDI ---
HPI - Nausea/Vomiting/Diarrhea General Chief complaint: Nausea/Vomiting/Diarrhea Stated complaint: dehydration, puking, appetite loss, stomach pain Time Seen by Provider: 08/12/25 10:15 Source: patient Mode of arrival: ambulatory Limitations: no limitations History of Present Illness HPI Narrative: Rosas is a 24-year-old male patient presenting to the clinic today with complaints of possible dehydration, nausea, vomiting, decreased appetite, and abdominal cramping x1 week. Reports he is able to keep water and Gatorade down at this time. Did try did eat some potatoes and was able to keep that down as well. Feels as though he may be dehydrated. He does report some abdominal cramping that comes and goes. No diarrhea. No blood in his stool. Last bowel movement was this morning and soft. He has been passing gas. Related Data Allergies Allergy/AdvReac Type Severity Reaction Status Date / Time bee venom protein (honey Allergy SOB Verified 08/12/25 10:13 bee) (bees) PMFSH Past Medical History Medical History (Updated 08/12/25 @ 10:24 by Mike Chaves APRN) Ulcer Fracture, ankle Bronchitis ADHD Family History Family History Other No active medical problems Social History Social History (Updated 03/19/25 @ 17:32 by Etta Gao NP) Smoking status: Current every day smoker Tobacco type: e-cigarettes/vaping Smokeless tobacco user: chewing tobacco Smoking end date: 11/25/16 Additional smoking assessment comments: currently vapes former chewing tobacco Alcohol intake: unknown Substance use: current Substance use type: marijuana Additional living arrangements comments: with Gender identity (if verbalized by the patient): Male Comments At the time of my signature, I reviewed and agree with the nursing past medical, surgical, social, and family history. There is no relevant family history pertinent to the patient complaint. Exam Narrative: General: Well-developed, well nourished, in no apparent distress Head: Normocephalic, atraumatic Eyes: Pupils equally round and reactive to light bilaterally, EOM intact, sclera and conjunctive clear, no discharge, lids normal Ears: TMs intact and clear, ear canals clear, no drainage, grossly hearing normal. Nose: Nares patent, no discharge, no inflammation, no sinus tenderness. Mouth: Oropharynx without lesions or masses, good dentition, MM dry. Neck: Supple, trachea midline, no enlargement of anterior or posterior cervical nodes, no thyroid masses or goiter palpable. Cardio: Regular rate and rhythm, s1 and s2 normal, no murmur appreciated. Resp: Clear to auscultation bilaterally anteriorly and posteriorly, no rhonchi, rales, wheezing or rubs Abdomen: Soft, pliable, bowel sounds present in all quadrants, generalized tender to palpation, no organomegly, no CVAT tenderness. Course Course Emergency Course: Portions of this record may have been created with voice recognition software. Level of Care: Express Care Visit Vital Signs Vital signs: Vital Signs Temperature 36.8 C 08/12/25 10:13 Pulse Rate 71 08/12/25 10:13 Respiratory Rate 18 08/12/25 10:13 Blood Pressure 137/76 08/12/25 10:13 Pulse Oximetry 100 08/12/25 10:13 Temperature 36.8 C 08/12/25 10:13 Pulse Rate 71 08/12/25 10:13 Respiratory Rate 18 08/12/25 10:13 Blood Pressure 137/76 08/12/25 10:13 Pulse Oximetry 100 08/12/25 10:13 Vital signs reviewed MDM - Nausea/Vomiting/Diarrhea MDM Narrative Medical decision making narrative: At the time of visit patient is resting comfortably on the exam table. Patient appears to be nontoxic. complaints of possible dehydration, nausea, vomiting, decreased appetite, and abdominal cramping x1 week. Reports he is able to keep water and Gatorade down at this time. Did try did eat some potatoes and was able to keep that down as well. Feels as though he may be dehydrated. He does report some abdominal cramping that comes and goes. No diarrhea. No blood in his stool. Last bowel movement was this morning and soft. He has been passing gas. Vital signs are stable. On exam patient has dry mucous membranes, heart rate is regular rate and rhythm, lung sounds are clear, abdomen is generalized mildly tender, soft, pliable, bowel sounds present all 4 quadrants, no CVAT tenderness. Plan: I suspect patient has acute nausea and vomiting/gastroenteritis. Offer to send patient to the ER for fluids and he declined at this time. Work note was given. Will send in prescription for ondansetron and Levsin. Recommend going to the emergency room if his symptoms worsen and he voiced understanding. Vital signs are stable clinic today. Supportive measures were discussed with the patient and they voiced understanding discharge instructions and agrees to treatment plan. Return precautions reviewed Differential Diagnosis Differential diagnosis: Likely traveler's diarrhea, food poisoning, gastroenteritis, clostridium difficile infection, drug-induced nausea and vomiting, dehydration and other (Colitis) Discharge Plan Discharge Clinical Impression: Gastroenteritis Patient Disposition: Home Condition: Stable Instructions: Antibiotic Form, Gastroenteritis (ED) Additional Instructions: Take prescription medications only as prescribed-ondansetron and Levsin Increase fluids and stay well hydrated May take Tylenol or motrin as directed on bottle for pain/fever BRAT diet for diarrhea Clear liquids x 24 hours then advance as tolerated for nausea/vomiting Go to the ED if you develop a worsening in your condition- high fever not controlled by Tylenol or Motrin, dehydration, weakness, lethargy, shortness of breath, or chest pain. Follow up with your PCP in 3-5 days if symptoms persist. Patient Language: Pashto Prescriptions: New ondansetron 8 mg tablet,disintegrating 8 mg PO Q8H PRN (Reason: nausea and vomiting) 3 Days Qty: 10 0RF hyoscyamine sulfate [Levsin] 0.125 mg tablet 0.125 mg PO QID PRN (Reason: dyspepsia) 3 Days Qty: 12 0RF Follow-up/Referrals: UNKNOWN,DOCTOR [Primary Care Provider] Stand Alone Forms: Work/School Release IP Time of Disposition: 10:24 Quality NIHSS Nursing Documentation ED NIHSS nursing documentation: reviewed/agree
--- OUTSIDE RECORDS SUMMARY | 2025-08-12 10:40 | XMS_ITS | Clinical Summary ---
Author Organization [facility] Address [address] [place] [address] Phone Care Team Providers Care Warehouse Man Name Role Phone Tripp Abraham MD Primary [...] of 3 - 19+ 3-dose series) 2018 SARS-COV-2 Immunization ( season) 2024 Influenza Immunization (#1) 2025 Respiratory Syncytial Virus (RSV) Immunization (Adult) (1 - 1-dose 75+ series) 2074 Meningococcal Immunization (ACWY) Aged Out No longer eligible based on patient's age to complete this topic Pneumococcal Immunization Combined Aged Out No longer eligible based on patient's age to complete this topic Rotavirus Immunization Aged Out No lo nger eligible based on patient's age to complete this topic Insurance MEDICAID [employer] Care Teams Warehouse Man Relationship Specialty Start Date End Date Tripp Abraham MD PCP - General Pediatrics 02/05/17
--- OUTSIDE RECORDS SUMMARY | 2025-08-12 10:40 | XMS_ITS | Clinical Summary ---
Author Organization [email or web address] Address [address] [place] [address] Care Team Providers Care Mixer Whipped Topping Name Role Phone Tripp Abraham MD Primary Care Provider [phone] Source Comments [email or web address],non-owned Affiliates and Associated Physician Practices is amultiple site organization consisting of ambulatory clinics and hospital sitesin [place], [place], [place] and [place]. This disclosure is being madepursuant to the Care Everywhere program and may not contain all information available regarding this patient. Last updated 18.[email or web address] Allergies No known active allergies Medications * [...] 1:25 PM CDT Height 179.4 cm (5' 10.63) 03/08/2017 1:25 PM C DT Body Mass Index 21.25 03/08/2017 1:25 PM CDT Plan of Treatment Health Maintenance Due Date Last Done Comments HIV SCREENING 2014 HPV VACCINE (1 - Male 3-dose series) 2014 HEPATITIS C SCREENING 09/06/2017 DTAP/TDAP/TD VACCINES (1 - Tdap) 2018 HEPATITIS B VACCINE (1 of 3 - 19+ 3-dose series) 2018 DEPRESSION SCREENING 11/25/2024 COVID-19 VACCINE (1 - 2023-2 5 season) 2025 INFLUENZA VACCINE (#1) 2025 ZOSTER VACCINE (1 of 2) 2049 [...] patient's age to complete this topic Insurance [facility] [facility] Care Teams Mixer Whipped Topping Relationship Specialty Start Date End Date Tripp Abraham MD [address] [place], [place] [id number] PCP - General Pediatrics 02/11/17
--- OUTSIDE RECORDS SUMMARY | 2025-08-12 10:40 | XMS_ITS | Clinical Summary ---
Author Organization [facility] Address [address] [place] [address] Care Team Providers Care Mover Helper Name Role Phone No, Physician Primary Care Provider [phone] Allergies No known active allergies Medications naproxen [...] on file Legal Sex Male 7:08 PM DEBUBBLIZER Gender Identity Not on file Sexual Orientation Not on file Obstetrics History Last Filed Vital Signs Vital Sign Reading Time Taken Comments Blood Pressure 148/86 10/23/2023 2:40 AM DEBUBBLIZER Pulse 85 10/23/2023 2:40 AM DEBUBBLIZER Temperature 36.6 C (97.8 F) 10/22/2023 9:51 PM DEBUBBLIZER Respiratory Rate 18 10/23/2023 2:40 AM DEBUBBLIZER Oxygen Saturation 100% 10/23/2023 2:40 AM DEBUBBLIZER Inhaled Oxygen Concentration - - Weight 93 kg (205 lb) 10/22/2023 9:51 PM DEBUBBLIZER Height 185.4 cm (6' 1) 06/12/2022 5:32 PM CDT Body Mass Index 27.05 06/12/2022 5:32 PM CDT Plan of Treatment Health Maintenance Due Date Last Done Comments Depression Screening 1999 Regular Well Visit/Exam 18-64 2017 Influenza Vaccine (#1) 2025 12/18/2012 DTaP/Tdap/Td Vaccine (8 - Td or [...] last revised on 2020. Testing performed by: [facility], [address] [place] [address]., [id number] Blood 06/12/2022 8:11 PM CDT 06/13/2022 9:17 AM CDT [facility] - GENERAL O RDERABLES Edited Result - Final NADYA LOPEZ (ROLANDA) [address] [facility] Department [place] [address] from Last 3 Months or Most Recently Relevant to Health Maintenance Insurance [place] [address] [employer] [facility] [employer] Care Teams Mover Helper Relationship Specialty Start Date End Date No, Physician PCP - General 02/16/21
== END 2025-08-12 10:32 | disposition home or self-care (01) ==
PROVIDERS: Emergency Provider Nurse Practitioner Family
DX: K52.9 Noninfective gastroenteritis and colitis, unspecified (principal); F17.290 Nicotine dependence, other tobacco product, uncomplicated
CPT/HCPCS: 99213; G0463